=== PATIENT | male | born 1990 | race Caucasian/White ===

== ENCOUNTER → 2017-03-10 00:01 | Emergency (ER) | payer BC ==
[2017-03-10 00:07] VITALS: BP 134/85
--- NOTE | 2017-03-10 01:33 | ED ---
Laceration/Wound HPI - HPI Summary HPI Summary: 26 male presents with complaint of laceration on back of right hand that he sustained just [employer] when he was washing dishes and one broke, cutting him. Patient's tetanus is utd, 2013. Denies swelling, bruising, and foreign body. Not actively bleeding. Denies numbness/tingling and loss of ROM. No medications [employer]. No other injuries or complaints at this time. Is in minimal to no pain. - History of Current Complaint Stated Complaint: RIGHT HAND LAC Time Seen by Provider: 03/10/17 00:32 Hx Obtained From: Patient Mechanism of Injury: Sharp/Blunt Trauma - broken glass Onset/Duration: Sudden Onset Alleviating: Compression Onset Severity: Mild Pain Intensity: 0 Pain Scale Used: 0-10 Numeric Associated Signs & Symptoms: Negative Related Hx: Dominant Hand (Right) - Allergy/Home Medications Allergies/Adverse Reactions: Allergies Allergy/AdvReac Type Severity Reaction Status Date / Time No Known Allergies Allergy Verified 03/10/17 00:09 PMH/Surg Hx/FS Hx/Imm Hx Endocrine/Hematology History: Denies: Hx Anticoagulant Therapy, Hx Unexplained Bleeding Respiratory History: Denies: Hx Asthma - Surgical History Surgery Procedure, Year, and Place: none - Immunization History Date of Tetanus Vaccine: 2013 Immunizations Up to Date: Yes Infectious Disease History: No Infectious Disease History: Denies: Traveled Outside the [place] in Last 30 Days - Social History Alcohol Use: Occasionally Substance Use Type: Reports: None Smoking Status (MU): Never Smoked Tobacco Review of Systems Constitutional: Negative Cardiovascular: Negative Respiratory: Negative Musculoskeletal: Negative Positive: Other - laceartion back of right hand Neurological: Negative All Other Systems Reviewed And Are Negative: Yes Physical Exam Triage Information Reviewed: Yes Vital Signs On Initial Exam: Initial Vitals Temp Pulse Resp BP Pulse Ox 98.4 F 67 14 134/85 99 03/10/17 00:06 03/10/17 00:06 03/10/17 00:06 03/10/17 00:06 03/10/17 00:06 Vital Signs Reviewed: Yes Appearance: Positive: Well-Appearing, No Pain Distress, Well-Nourished Skin: Positive: Warm, Skin Color Reflects Adequate Perfusion, Dry, Erythema @ - 1cm linear laceration superficial epidermal layer "skin scrape" without significant depth or width, without edema and ecchymosis on posterior right hand. No FB or hematoma. Negative: Cyanosis @ Head/Face: Positive: Normal Head/Face Inspection Eyes: Positive: Normal, Conjunctiva Clear ENT: Positive: Normal ENT inspection, Hearing grossly normal Neck: Positive: Supple, Nontender Respiratory/Lung Sounds: Positive: Clear to Auscultation, Breath Sounds Present Cardiovascular: Positive: Normal, RRR, Pulses are Symmetrical in both Upper and Lower Extremities - 2+ radial b/l Musculoskeletal: Positive: Normal, Strength/ROM Intact - full ROM left hand, fingers and wrist. sensation intact. Negative: Limited @, Interruption @ Neurological: Positive: Normal, Sensory/Motor Intact, Alert, Oriented to Person Place, Time Procedures - Laceration/Wound Repair 1 Location: upper extremity - posterior right hand Description: Linear Length, Depth and Shape: 1cm length, 0 depth and width, linear Irrigated w/ Saline (ccs): 50 Laceration/Wound Explored: clean, no foreign body removed Closure: Skin Adhesive Sterile Dressing Applied?: Yes - telfa and kerlex Diagnostics - Vital Signs Vital Signs Temp Pulse Resp BP Pulse Ox 03/10/17 00:06 98.4 F 67 14 134/85 99 - Laboratory Lab Statement: Any lab studies that have been ordered have been reviewed, and results considered in the medical decision making process. Laceration Repair Course/Dx - Course Course Of Treatment: due to PE findings and BRITNI no x-ray needed. Very small laceration of 1cm was glued without complication. Covered with telfa. Keep clean and dry. Triple antibiotic ointment after 48 hours. Not in any pain, no management at this time. Follow up. - Differential Dx Differental Diagnoses: Dehiscence, Foreign Body, Laceration, Other - Clinical Impression Provider Diagnoses: Laceration of left hand Discharge - Discharge Plan Condition: Stable Disposition: HOME Patient Education Materials: Laceration (ED), Skin Adhesive Care (ED) Referrals: Francisco Matamoros MD [Primary Care Provider] - Additional Instructions: Keep area clean and dry for the next 24-48 hours. After 48 hours you may apply triple antibiotic ointment. Watch for signs of infection and follow up with PCP.
== END | disposition home or self-care (01) ==
LOC: ED 00:01
DX: S61.411A Laceration without foreign body of right hand, initial encounter (principal); W25.XXXA Contact with sharp glass, initial encounter; Y93.9 Activity, unspecified; Y92.9 Unspecified place or not applicable; Y99.9 Unspecified external cause status
CPT/HCPCS: 12001; 99281